=== PATIENT | male | born 1970 | race African-American/Black ===

== ENCOUNTER 2022-02-22 12:18 | Day surgery (SDC) | payer BC ==
[2022-02-10 14:45] LABS: Absolute Lymphocytes (CBC) 1.2 K/uL (0.7-4.9); Hematocrit 40.6 % (39.6-49.0); Lymphocytes % 27.9 % (15.3-44.8); MCV 89.5 fL (80-100); MPV 7.9 fL (7.6-11.3); RBC Red Blood Cell Count 4.53 M/uL (4.33-5.43)
[2022-02-10 14:47] LABS: Specific Gravity 1.007 (1.005-1.030); Urine Bilirubin NEGATIVE (Negative); Urine Blood Negative (Negative); Urine Clarity Clear (Clear); Urine Color Colorless (Yellow); Urine Glucose NEGATIVE (Negative); Urine Protein NEGATIVE (Negative); Urine Urobilinogen Normal (Normal)
[2022-02-10 14:51] LABS: Protime INR 1.08
[2022-02-10 15:00] LABS: Potassium 3.4 mmol/L (3.5-5.1)
--- NOTE | 2022-02-11 17:39 | EKG ---
Test Date: 2022-02-10 Test Time: 14:20:36 [employer]: KUNAL MEASUREMENT RESULTS: Intervals: Rate: 66 WV: 176 QRSD: 80 QT: 380 QTc: 398 [place]: P: 55 WV: 176 QRS: 45 T: 55 INTERPRETIVE STATEMENTS: Normal sinus rhythm Normal ECG No previous ECG available for comparison Electronically Signed On 02-11-22 17:37:47 [employer] by Deric Mcgregor
[2022-02-22] MEDS ORDERED: Ringers Lactate 1,000 ML IV ONE (12:48)
[2022-02-22] MEDS ORDERED: CEFAZOLIN SODIUM 2 GM/VIAL ONE (12:48)
[2022-02-22 12:59] VITALS: O2SAT 100
[2022-02-22] MEDS ORDERED: MIDAZOLAM HCL 2 MG/2 ML INJ ONE ×2 (15:18→15:27)
[2022-02-22] MEDS ORDERED: propofoL 200 MG/20 ML VIAL IV ONE (15:27)
[2022-02-22] MEDS ORDERED: LIDOCAINE 2% MPF 5 ML VIAL ONE (15:27)
[2022-02-22] MEDS ORDERED: FENTANYL CITR 100 MCG/2 ML ONE (15:27)
[2022-02-22] MEDS ORDERED: BUPIVACAINE 0.25% PF 30 ML VIAL ONE (15:29)
[2022-02-22] MEDS ORDERED: BACITRACIN OINTMENT 14 GM TUBE TOP ONE (15:29)
[2022-02-22] MEDS ORDERED: LIDOCAINE 1% MPF 30 ML VIAL ONE (15:29)
[2022-02-22] MEDS ORDERED: NS 0.9% VIAL 10 ML ONE (15:43)
[2022-02-22] MEDS ORDERED: KETOROLAC 30 MG/ML INJ ONE (15:56)
[2022-02-22] MEDS ORDERED: ONDANSETRON 4 MG/2 ML VIAL ONE (15:56)
[2022-02-22] MEDS ORDERED: CODEINE 30MG/APAP 300MG TAB PO PRN (17:24)
[2022-02-22 17:47] VITALS: BP 145/89; TEMP 96.7
--- NOTE | 2022-02-22 18:25 | OP ---
Surgeon: GRACIELA FERNANDEZ Preoperative Diagnosis: Phimosis. Postoperative Diagnosis: Phimosis. Principal Procedure: Sleeve circumcision, penile block. Indication For Procedure: Mr. Lucero is a 51-year-old gentleman, who presented to the [facility] with phimosis and desiring options for management. I counseled him and explained the options to inc lude a dorsal slit versus circumcision, and he because of issues with hygiene and occasional infectio n elected to proceed with circumcision. Procedure In Detail: The patient was consented in the preoperative holding area before being transfe rred to the operative suite where general anesthesia was induced. He was given Ancef 2 g IV antimicr obial prophylaxis and pneumo boots were provided for DVT prophylaxis. He was placed supine on the pr ocedure table, and his genitalia was prepped with Betadine and draped in standard fashion. The case was begun identifying an area beneath the pubic symphysis where an 18-gauge needle was then used to i nject a mixture of 1% lidocaine and 0.25% Marcaine 50:50 mixture into the infrapubic midline, 10 cc, and an additional 10 cc in each lateral region of the neurovascular bundles. After administering a t otal of 30 cc of the mixture, the penile block was completed, and I turned my attention to the proced ure. The case was begun by identifying a line at the base of the vera of the glans circumferential ly. A dorsal slit was then performed sufficiently to retract the foreskin down beyond the glans, and a 1 cm preputial margin was also identified. The intervening skin was incised and removed along wit h the associated dartos layers. The subcutaneous tissue and dartos layers were then carefully fulgur ated for any bleeding vessels until completely hemostatic. Irrigation was applied to the area before reconstruction was then begun using 3-0 chromic suture. At first, a 4-quadrant interrupted stitch w as applied to evenly distribute the tissue around the circumference of the phallus. The intervening tissue was then sutured together in a running horizontal mattress fashion. In the end, the cosmetic result was excellent, and wet-to-dry was applied before the Bacitracin was applied to the glans and t he circumcision line. A Herminia and Coban were then applied for gentle pressure dressing application, and the patient was awakened from general anesthesia. He was then transferred to a stretcher before being transferred to the recovery room in good condition. Complications: None. Discharge Disposition: He should follow up in the Urology Clinic within 2-4 weeks interval vicenta EDOUARD Voice ID: [id number] Report ID: [id number]
== END 2022-02-22 18:30 | disposition home or self-care (01) ==
LOC: OR 12:18
PROVIDERS: ATTEND Urology
PROC: 0VTTXZZ Resection of Prepuce, External Approach (ICD-10-PCS; principal; 2022-02-22 13:45)
DX: N47.1 Phimosis (principal); N47.7 Other inflammatory diseases of prepuce
CPT/HCPCS: 93005; 85025; 80048; 36415; 85610; 88304; 81003; 54150; J2704; J2001 ×2; J2250 ×2; J3010; A4216; J7120; J2405